=== PATIENT | male | born 1990 | race Hispanic/Latino ===

== ENCOUNTER → 2018-02-21 | Day surgery (SDC) | payer OTHER ==
[~2018-02-21] MED LIST: AMLODIPINE/BENAZ PO; ATORVASTATIN CA20 MG PO; FENTANYL CITRATE/PF 100MCG/2 ML INJ ONE; GLUCAGON FOR INJ 1 MG VIAL ONE; HYOSCYAMINE SULFATE 0.5 MG/ML AMP ONE; METFORMIN HCL500 MG PO; MIDAZOLAM HCL 2 MG/2 ML VIAL ONE; PHENYLEPHRINE HCL 1% 10 MG/ML VIAL ONE; PROPOFOL IV EMULSION 10 MG/ML 20 ML VIAL ONE; PROPOFOL IV EMULSION 10 MG/ML 50 ML VIAL ONE
--- NOTE | 2018-02-21 11:45 | Operative Report ---
DATE OF PROCEDURE: February 21, 2018 PROCEDURE PERFORMED: Colonoscopy with polypectomy. INDICATIONS FOR COLONOSCOPY: History of diverticulitis. MEDICATION: Patient was done under MAC. Please see anesthesiologist's note. PROCEDURE: With patient in left lateral decubitus position, the flexible fiberoptic Olympus colonoscope was inserted into the rectum with ease and advanced all the way to the cecum. It was then withdrawn slowly. Mucosa overlying the cecum, ascending, transverse and descending appeared to be within normal limits. Diverticular disease was noted to involve the sigmoid colon. One polyp was hot biopsied from the sigmoid colon. The rectum appeared to be within normal limits. The scope was then retroflexed into the distal rectum and small internal hemorrhoids were noted, none of which was actively bleeding. The scope was then straightened out. It was subsequently withdrawn. Patient tolerated the procedure well. IMPRESSION 1. Diverticulosis sigmoid colon. 2. Sigmoid colon polyp hot biopsied. 3. Internal hemorrhoids, none actively bleeding. PLAN: Follow up histology. Initiate high-fiber low-fat diet. Initiate high-fiber supplement. Timing of followup colonoscopy pending pathology report. Job#: [id number] RICHARD
== END | disposition home or self-care (01) ==
LOC: OR 06:54
PROVIDERS: ATTEND Internal Medicine Gastroenterology
DX: Z09 Encounter for follow-up examination after completed treatment for conditions other than malignant neoplasm (principal); K63.5 Polyp of colon; K57.30 Diverticulosis of large intestine without perforation or abscess without bleeding; K64.8 Other hemorrhoids; I10 Essential (primary) hypertension; E11.9 Type 2 diabetes mellitus without complications; R06.83 Snoring; Z01.810 Encounter for preprocedural cardiovascular examination; Z68.41 Body mass index [BMI] 40.0-44.9, adult; Z79.84 Long term (current) use of oral hypoglycemic drugs
CPT/HCPCS: 36415; 45384; 82948; 93005; J1610; J1980; J2250; J2370; 45378

== ENCOUNTER 2021-05-25 19:22 | Emergency (ER) | payer OTHER ==
[~2021-05-25] VITALS: Ht 188 cm; Wt 147.4 kg
[~2021-05-25 19:22] MED LIST changes: -FENTANYL CITRATE/PF 100MCG/2 ML INJ ONE; -GLUCAGON FOR INJ 1 MG VIAL ONE; -HYOSCYAMINE SULFATE 0.5 MG/ML AMP ONE; -MIDAZOLAM HCL 2 MG/2 ML VIAL ONE; -PHENYLEPHRINE HCL 1% 10 MG/ML VIAL ONE; -PROPOFOL IV EMULSION 10 MG/ML 20 ML VIAL ONE; -PROPOFOL IV EMULSION 10 MG/ML 50 ML VIAL ONE
[2021-05-25] MEDS ORDERED: CYCLOBENZAPRINE5 MG PO (20:48)
[2021-05-25] MEDS ORDERED: NAPROSYN500 MG PO (20:48)
[2021-05-25] MEDS ORDERED: CASIRIVIMAB/IMDEVIMAB 10 ML in SODIUM CHLORIDE 0.9% 100 ML IV ONE (21:45)
== END 2021-05-25 21:57 | disposition home or self-care (01) ==
LOC: FSED 19:48
DX: M54.50 Low back pain, unspecified (principal); V43.52XA Car driver injured in collision with other type car in traffic accident, initial encounter; Y92.488 Other paved roadways as the place of occurrence of the external cause; I10 Essential (primary) hypertension; E11.9 Type 2 diabetes mellitus without complications; E78.5 Hyperlipidemia, unspecified
CPT/HCPCS: 72100; 99282; J7050

== ENCOUNTER 2024-12-07 13:41 | Emergency (ER) | payer OTHER ==
[~2024-12-07] VITALS: Ht 182.9 cm; Wt 118.8 kg
[~2024-12-07 13:41] MED LIST changes: +CYCLOBENZAPRINE5 MG PO; +NAPROSYN500 MG PO
[2024-12-07] MEDS: SODIUM CHLORIDE 0.9% 1000ML 1,000 ML IV SCH (14:40)
[2024-12-07] MEDS: ONDANSETRON HCL INJ 2MG/ML 2ML 2 MG/ML VIAL IV STA (14:40)
[2024-12-07] MEDS ORDERED: IOPAMIDOL 370 MG/ML 100 ML INFUS..BTL INJ ONE (15:15)
[2024-12-07] MEDS ORDERED: AZOR 10-40 MG1 EACH (15:16)
[2024-12-07] MEDS ORDERED: HYDRALAZINE HCL50 MG PO (15:16)
[2024-12-07] MEDS ORDERED: BIOTIN5 MG (15:16)
[2024-12-07] MEDS ORDERED: EMTRICITABINE-1 EACH (15:16)
[2024-12-07] MEDS ORDERED: MOUNJARO10 MG/0.5 (15:16)
[2024-12-07] MEDS ORDERED: ASHWAGANDHA300 MG (15:16)
[2024-12-07] MEDS: METRONIDAZOLE 500MG/NS 100ML 100 ML IV ONE (17:33)
[2024-12-07] MEDS: CIPROFLOXACIN 400 MG/D5W 200ML 200 ML IV SCH (17:35)
[2024-12-07] MEDS ORDERED: CIPRO500 MG PO (19:55)
[2024-12-07] MEDS ORDERED: METRONIDAZOLE500 MG PO (19:56)
[2024-12-07] MEDS ORDERED: ONDANSETRON ODT4 MG PO (19:57)
[2024-12-07] MEDS ORDERED: DICYCLOMINE HCL20 MG PO (19:58)
[2024-12-07 20:06] VITALS: PULSE 80; RESP 18; TEMP 98.1
[2024-12-07 20:07] VITALS: BP 114/60; PULSE 80; RESP 18; TEMP 98.1; O2SAT 98
== END 2024-12-07 20:10 | disposition home or self-care (01) ==
LOC: FSED 13:47
DX: R11.0 Nausea (principal); R19.7 Diarrhea, unspecified; K57.32 Diverticulitis of large intestine without perforation or abscess without bleeding; D72.829 Elevated white blood cell count, unspecified; R59.1 Generalized enlarged lymph nodes; R82.4 Acetonuria; R10.30 Lower abdominal pain, unspecified; E11.9 Type 2 diabetes mellitus without complications; E78.5 Hyperlipidemia, unspecified; I10 Essential (primary) hypertension; R53.1 Weakness; R53.81 Other malaise
CPT/HCPCS: 74177; 80048; 80076; 81003; 85025; 99284; J0744; J2405; J7030; Q9967